=== PATIENT | male | born 1990 | race Native Hawaiian/Other Pacific Islander ===

== ENCOUNTER 2017-03-23 18:49 | Emergency (ER) | payer OTHER ==
[~2017-03-23] VITALS: Ht 167.6 cm; Wt 67.2 kg
[2017-03-23] MEDS ORDERED: TRAZ50TA11 PO (19:03)
[2017-03-23] MEDS ORDERED: MELO15TA4 PO (19:03)
[2017-03-23] MEDS ORDERED: DEPRESSION MED (19:04)
[2017-03-23 22:19] LABS: MEAN CORPUSCULAR HEMOGLOBIN 30.2 pg (27.0-33.0); MEAN CORPUSCULAR HGB CONC 34.7 g/dl (32.0-36.5); RED CELL DISTRIBUTION WIDTH 12.8 % (11.5-14.5); WHITE BLOOD COUNT 7.9 K/mm3 (4.0-10.0)
[2017-03-23 22:45] LABS: METHADONE URINE NEGATIVE (NEGATIVE)
[2017-03-23 22:56] LABS: ALBUMIN 4.4 GM/DL (3.2-5.2); ALBUMIN/GLOBULIN RATIO 1.38 (1.00-1.93); ALKALINE PHOSPHATASE 84 U/L (45-117); ALT/SGPT 19 U/L (12-78); ANION GAP 7 MEQ/L (8-16); AST/SGOT 14 U/L (15-37); BILIRUBIN,DIRECT 0.1 MG/DL (0.0-0.2); BILIRUBIN,TOTAL 0.4 MG/DL (0.2-1.0); BLOOD UREA NITROGEN 10 MG/DL (7-18); CALCIUM LEVEL 9.2 MG/DL (8.5-10.1); CARBON DIOXIDE LEVEL 29 MEQ/L (21-32); CHLORIDE LEVEL 103 MEQ/L (98-107); CREATININE FOR GFR 1.18 MG/DL (0.70-1.30); GLOMERULAR FILTRATION RATE > 60.0 (>60); GLUCOSE, FASTING 79 MG/DL (70-105); POTASSIUM SERUM 3.9 MEQ/L (3.5-5.1); SODIUM LEVEL 139 MEQ/L (136-145); TOTAL PROTEIN 7.6 GM/DL (6.4-8.2)
[2017-03-24 09:32] VITALS: BP 128/80
== END 2017-03-24 09:40 ==
LOC: M ED 18:49
DX: F33.8 Other recurrent depressive disorders (principal); R45.851 Suicidal ideations; G89.29 Other chronic pain; M54.9 Dorsalgia, unspecified; Z79.899 Other long term (current) drug therapy
CPT/HCPCS: 36415; 80048; 80076; 80307; 84443; 85027; 99284; G0480

== ENCOUNTER → 2018-12-09 | Outpatient (REF) | payer OTHER ==
[~2018-12-09] MED LIST: DEPRESSION MED; MELO15TA28 PO; TRAZ-160 PO
== END ==
LOC: M LAB REF 20:50
PROVIDERS: ATTEND Physician Assistant
DX: K62.89 Other specified diseases of anus and rectum (principal)

== ENCOUNTER → 2020-04-16 | Emergency (ER) | payer OTHER ==
[~2020-04-16] MED LIST changes: -TRAZ-160 PO; +TRAZ-252 PO
== END | disposition home or self-care (01) ==
LOC: M ED 16:00
DX: R22.32 Localized swelling, mass and lump, left upper limb (principal); M79.602 Pain in left arm; M54.9 Dorsalgia, unspecified; M19.90 Unspecified osteoarthritis, unspecified site; Z79.899 Other long term (current) drug therapy